=== PATIENT | female | born 1965 | race Caucasian/White ===

== ENCOUNTER 2018-03-28 07:49 | Emergency (ER) | payer OTHER ==
[2018-03-28 08:39] LABS: URINE BLOOD (Dip) POC Negative (NEGATIVE); URINE GLUCOSE (Dip) POC Negative (NEGATIVE); URINE KETONES (Dip) POC 1+ (NEGATIVE); URINE LEUKOCYTE EST (Dip) POC Negative (NEGATIVE); URINE NITRITE (Dip) POC Negative (NEGATIVE); URINE TOTAL PROTEIN POC 2+ (NEGATIVE)
[2018-03-28] MEDS: KETOROLAC 30 MG INJ IM (10:15)
== END 2018-03-28 10:28 | disposition home or self-care (01) ==
LOC: FTE 07:49
DX: M54.41 Lumbago with sciatica, right side (principal); G89.29 Other chronic pain; R39.89 Other symptoms and signs involving the genitourinary system
CPT/HCPCS: 81003; 81025; 84702; 96372; 99284-25